=== PATIENT | male | born 1990 | race Caucasian/White ===

== ENCOUNTER 2017-11-19 22:21 | Emergency (ER) | payer OTHER ==
[2017-11-19 22:53] VITALS: BP 151/86; PULSE 84; RESP 20; TEMP 98.4; O2SAT 97
[2017-11-20] MEDS ORDERED: BACT800T5 PO (03:08)
--- NOTE | 2017-11-20 03:09 | PD ---
HPI Chief Complaint: Laceration/Skin Injury Time Seen by Provider: 02:59 Travel History International Travel<30 days: No Contact w/Intl Traveler<30days: No Traveled to known affect area: No History of Present Illness HPI The patient is a 27-year-old right-hand dominant male that at 5:45 PM yesterday cut his left hand at the greater thenar eminence. He cut it with a clean knife , a flat knife. There is no possibility of foreign body in the wound. He was inducted the 10 years ago and knows he had a tetanus shot at that time. [facility] Past Medical History Medical History: Denies Significant Hx Diminished Hearing: No Tetanus Vaccination: Unknown Influenza Vaccination: No Past Surgical History Surgical History: No Previous Surgery Social History Alcohol Use: No Tobacco Use: Yes (OCCASIONALLY) Substance Use: No Allergies-Medications (Allergen,Severity, Reaction): Coded Allergies: No Known Allergies (Unverified , 11/20/17) Reported Meds & Prescriptions Reported Meds & Active Scripts Active No Active Prescriptions or Reported Medications Review of Systems Except as stated in HPI: all other systems reviewed are Neg Physical Exam Narrative GENERAL: Well-nourished, well-developed patient in minimal apparent distress with his left hand laceration. SKIN: Focused skin assessment warm/dry. There is a 2 cm laceration, superficial , over the greater thenar eminence. No foreign body is noted in the wound and the wound appears clean. The patient opposes his thumb across to the little finger, the recurrent branch of the median nerve does appear intact. HEAD: Normocephalic. EYES: No scleral icterus. No injection or drainage. NECK: Supple, trachea midline. No JVD or lymphadenopathy. CARDIOVASCULAR: Regular rate and rhythm without murmurs, gallops, or rubs. RESPIRATORY: Breath sounds equal bilaterally. No accessory muscle use. GASTROINTESTINAL: Abdomen soft, non-tender, nondistended. MUSCULOSKELETAL: No cyanosis, or edema. BACK: Nontender without obvious deformity. No CVA tenderness. Data Data Last Documented VS Vital Signs Date Time Temp Pulse Resp B/P (MAP) Pulse Ox O2 Delivery O2 Flow Rate FiO2 11/20/17 01:21 20 11/19/17 22:53 98.4 84 151/86 (107) 97 MDM Medical Decision Making Medical Screen Exam Complete: Yes Emergency Medical Condition: Yes Medical Record Reviewed: Yes Differential Diagnosis Laceration of hand needing suturing, laceration of hand not needing suturing, laceration of recurrent branch of median nerve Narrative Course The patient is a laceration of his left hand not needing suturing. He has good opposition of the thumb, the median nerve recurrent branch is intact. Plan: The patient will have antibiotic ointment, twice daily bandaging for the first few days followed by daily bandaging until healed. If there any problems he should return to the emergency department. Diagnosis Primary Impression: Hand laceration Additional Instructions: For the first 3 or 4 days change the bandage twice. Keep it clean and dry or if you get it wet wash the hand well and put antibiotic ointment on and rebandage. Med/Other Pt SpecificInfo: Prescription(s) given Scripts Sulfamethoxazole-Trimethoprim (Bactrim DS) 800-160 Mg Tab 1 TAB PO BID for Infection, #20 TAB 0 Refills Prov: Chetan Rodriguez MD 11/20/17 Disposition: 01 DISCHARGE HOME Condition: Stable Chetan Rodriguez MD Nov 20, 2017 03:09
[2017-11-20] MEDS ORDERED: SULFAMETHOXAZOLE-TRIMETHOPRIM DS 800-160 MG TAB PO ONE (03:15)
[2017-11-20 03:24] VITALS: BP 142/74
== END 2017-11-20 03:26 | disposition home or self-care (01) ==
LOC: PHED 22:21
DX: S61.412A Laceration without foreign body of left hand, initial encounter (principal); W26.0XXA Contact with knife, initial encounter; Z72.0 Tobacco use
CPT/HCPCS: 99283